=== PATIENT | female | born 1960 | race African-American/Black ===

== ENCOUNTER 2023-12-17 17:16 | Emergency (ER) | payer SELFPAY ==
[~2023-12-17] VITALS: Ht 172.7 cm; Wt 120.0 kg
[2023-12-17 17:21] VITALS: TEMP 98; O2SAT 97
[2023-12-17 19:51] LABS: BASOPHILS % 0.7 % (0.0-2.0); EOSINOPHILS % 1.9 % (0.0-5.0); HEMATOCRIT. 43.1 % (36.0-48.0); HEMOGLOBIN. 14.4 g/dL (12.0-16.0); MEAN CORPUSCULAR HEMOGLOBIN 30.8 pg (28.0-32.0); MEAN CORPUSCULAR HGB CONC 33.4 g/dL (31.0-37.0); MEAN CORPUSCULAR VOLUME 92.3 fL (81.0-99.0); MEAN PLATELET VOLUME 7.4 fl (7.4-10.4); MONOCYTES % 8.5 % (2.0-8.0); NEUTROPHILS % 45.9 % (40.0-76.0); PLATELET 260 x1000/uL (130-400); RED BLOOD CELL COUNT 4.68 mill/uL (4.2-5.4); RED CELL DISTRIBUTION WIDTH 13.1 % (11.6-14.6); WHITE BLOOD COUNT 5.5 x1000/uL (4.5-11.0)
[2023-12-17 19:57] LABS: CHLORIDE 106 mEq/L (98-107); POTASSIUM 3.7 mEq/L (3.5-5.1); SODIUM 140 mEq/L (136-145)
[2023-12-17 19:58] LABS: CARBON DIOXIDE 29 mEq/L (21-32)
[2023-12-17 20:03] LABS: CREATININE 1.2 mg/dL (0.6-1.0); GLUCOSE 104 mg/dL (70-105); UREA NITROGEN BLOOD 12 mg/dL (9-23)
[2023-12-17 20:05] LABS: ALANINE AMINOTRANSFERASE 13 IU/L (10-49); ALBUMIN 4.4 g/dL (3.2-4.8); ASPARTATE AMINOTRANSFERASE 25 IU/L (<34); BILIRUBIN TOTAL 0.8 mg/dL (0.1-1.0)
[2023-12-17 20:06] LABS: PROTEIN TOTAL 8.1 g/dL (6.0-8.3)
[2023-12-17] MEDS ORDERED: ACETAMINOPHEN 325MG TABLET PO ONE (21:00)
[2023-12-17] MEDS ORDERED: ACET-2708 MT (22:33)
[2023-12-17] MEDS ORDERED: LIDO700A15 TP (22:33)
[2023-12-17] MEDS: LIDOCAINE 5% PATCH TOP SCH (22:46)
[2023-12-17] MEDS: ACETAMINOPHEN 325MG TABLET PO NR (22:47)
[2023-12-17 23:05] VITALS: BP 129/81; PULSE 74; RESP 16; O2SAT 98
== END 2023-12-17 23:17 | disposition home or self-care (01) ==
LOC: ER 17:16
DX: S20.219A Contusion of unspecified front wall of thorax, initial encounter (principal); I10 Essential (primary) hypertension; E11.9 Type 2 diabetes mellitus without complications; V04.99XA Pedestrian with other conveyance injured in collision with heavy transport vehicle or bus, unspecified whether traffic or nontraffic accident, initial encounter; Y93.89 Activity, other specified; Y92.89 Other specified places as the place of occurrence of the external cause; Y99.8 Other external cause status
CPT/HCPCS: 80053; 85025; 36415; 71046; 71250; 99284; Z7610 ×3